=== PATIENT | female | born 1930 | race Caucasian/White ===

== ENCOUNTER 2016-05-08 09:43 | Inpatient (IN) | payer MEDICARE ==
[~2016-05-08] VITALS: Ht 157.5 cm; Wt 65.4 kg
[2016-05-08] MEDS ORDERED: BENA20TA PO (09:53)
[2016-05-08] MEDS ORDERED: VITA2000 PO (09:53)
[2016-05-08] MEDS ORDERED: SIMV20TA PO (09:53)
[2016-05-08] MEDS ORDERED: ULOR40TA PO (09:53)
[2016-05-08] MEDS ORDERED: AMLO10TA2 PO (09:53)
[2016-05-08] MEDS ORDERED: GLUC1TAB24 PO (09:53)
[2016-05-19] MEDS ORDERED: GENTAMICIN SULFATE 80 MG/2 ML VIAL ONE (06:17)
[2016-05-19] MEDS ORDERED: POVIDONE IODINE 5% (ANTISEPSIS KIT) 4 APPLICATIONS EACH NARE PRN (06:30)
[2016-05-19] MEDS ORDERED: METOPROLOL TARTRATE 25 MG TAB PO PRN (06:30)
[2016-05-19] MEDS ORDERED: SODIUM CHLORID 0.9% 500 ML IV PRN (06:30)
[2016-05-19] MEDS ORDERED: INSULIN HUMAN REGULAR 1,000 UNITS/10 ML VIAL SQ PRN (06:30)
[2016-05-19] MEDS ORDERED: LACTATED RINGER'S 1000 ML IV PRN (06:30)
[2016-05-19] MEDS ORDERED: ceFAZolin 2 GM PREMIX 50 ML IV SCH (06:30)
[2016-05-19] MEDS ORDERED: CHLORHEXIDINE GLUCONATE 2 % 1 PACK (2 CLOTHS) TOPICAL PRN (06:30)
[2016-05-19] MEDS: CHLORHEXIDINE GLUCONATE 4% SOLN 120 ML BTL TOPICAL SCH (06:30)
[2016-05-19 06:42] VITALS: BP 162/82; PULSE 89; RESP 18; TEMP 98; O2SAT 98
[2016-05-19] MEDS ORDERED: PROPOFOL 200 MG/20 ML AMP IV ONE (08:19)
[2016-05-19] MEDS ORDERED: PHENYLEPH/NS 1000 MCG/10 ML SYR IV ONE (08:19)
[2016-05-19] MEDS ORDERED: ACETAMINOPHEN 1000 MG/100 ML VIAL IV ONE (08:24)
[2016-05-19] MEDS ORDERED: ONDANSETRON HCL 4 MG/2 ML VIAL ONE (08:24)
[2016-05-19] MEDS ORDERED: FAMOTIDINE 20 MG/2 ML VIAL ONE (08:24)
[2016-05-19] MEDS ORDERED: MIDAZOLAM HCL 2 MG/2 ML VIAL ONE (08:24)
[2016-05-19] MEDS ORDERED: fentaNYL CITRATE 250 MCG/5 ML AMP ONE (08:24)
[2016-05-19] MEDS: SODIUM CHLORIDE 0.9% IV SCH ×2 (08:30→09:00)
[2016-05-19] MEDS: TRANEXAMIC ACID IV SCH ×2 (08:30→09:00)
[2016-05-19] MEDS: EXPAREL PERI-ARTICULAR INJECTION (TOTAL VOL. 60 ML) P-ARTICULR SCH ×4 (08:30→09:30)
[2016-05-19] MEDS ORDERED: TRANEXAMIC ACID IV SCH (11:30)
[2016-05-19] MEDS ORDERED: ONDANSETRON HCL 4 MG/2 ML VIAL IVP PRN (11:30)
[2016-05-19] MEDS ORDERED: SODIUM CHLORIDE 0.9% IV SCH (11:30)
[2016-05-19] MEDS ORDERED: TRANEXAMIC ACID INJ 0 MG in SODIUM CHLORIDE 0.9% INJ 100 ML IV SCH (11:30)
[2016-05-19] MEDS ORDERED: ACETAMINOPHEN/HYDROcodone 325 MG/7.5 MG TAB PO PRN (11:30)
[2016-05-19] MEDS ORDERED: Post-op Orders (for Pharmacy) MISC XX ONE (11:30)
[2016-05-19] MEDS ORDERED: ZOLPIDEM TARTRATE 5 MG TAB PO PRN (11:30)
[2016-05-19] MEDS ORDERED: MAGNESIUM HYDROXIDE SUSP 30 ML CUP PO PRN (11:30)
[2016-05-19] MEDS ORDERED: SODIUM CHLORIDE 0.9% FLUSH 5 ML FLUSH IVF PRN (11:30)
--- NOTE | 2016-05-19 11:39 | HHI.FF ---
Face to Face Verification Diagnosis: (1) Status post total replacement of left shoulder Occupational Therapy Left UE Range of Motion: Pendular Additional Instructions Do not externally rotate beyond neutral. No resistance in internal rotation. Nursing Nursing: Dressing changes Dressing Changes: Daily dressing change, Coverderm/Primapore Additional Instructions Remove steristrips on postop day 14. I have seen patient Johanna Meyers on 05/19/16. My clinical findings support the need for the requested home health care services because: Ltd mobility - disease progression Limited ability to care for self High risk of falls I certify that my clinical findings support that this patient is homebound because: Post-op weakness Unsteady gait/balance Unsafe to leave home unassisted Carissa Clifton MD (Charles) May 19, 2016 11:38
[2016-05-19] MEDS: LACTATED RINGER'S 1000 ML INJ 1,000 ML IV SCH ×2 (12:17→21:18)
[2016-05-19] MEDS: KETOROLAC TROMETHAMINE 30 MG/ML (IVP) VIAL IVP SCH ×2 (12:44→12:45)
--- NOTE | 2016-05-19 13:02 | RADRPT ---
EXAM DATE/TIME: 05/19/2016 13:11 [place] COMPARISON: No previous studies available for comparison. INDICATIONS : Post op left shoulder surgery. MEDICAL HISTORY : Unobtainable. SURGICAL HISTORY : Unobtainable. ENCOUNTER: Initial ACUITY: 1 day PAIN SCORE: 0/10 LOCATION: Left shoulder. FINDINGS: Left shoulder arthroplasty is noted. No fracture or dislocation. A loose body is suspected in inferio r to the coracoid process. A small amount of soft tissue emphysema is present. CONCLUSION: Postoperative changes left shoulder arthroplasty. Francisco Hernandez MD on May 19, 2016 at 13:00 Board Certified Radiologist. This report was verified electronically.
--- NOTE | 2016-05-19 13:35 | PD.CONS ---
[facility] By Dr. Clifton Reason for Consult Medical management Primary Care Physician Tori Le MD Diagnoses: History of Present Illness This is a 86-year-old female past medical history of hypertension, osteoarthritis involving multiple joints, chronic kidney disease and hyperlipidemia who presented with elective left total shoulder arthroplasty. Patient was seen in the PACU at the bedside. She had no complaints. [facility] consulted for medical management. Review of Systems Constitutional: DENIES: Diaphoretic episodes, Fatigue, Fever, Weight gain, Weight loss, Chills, Dizziness, Change in appetite, Night Sweats Endocrine: DENIES: Abnorml menstrual pattern, Heat/cold intolerance, Polydipsia , Polyuria, Polyphagia Eyes: DENIES: Blurred vision, Diplopia, Eye inflammation, Eye pain, Vision loss , Photosensitivity, Double Vision Ears, nose, mouth, throat: DENIES: Tinnitus, Hearing loss, Vertigo, Nasal discharge, Oral lesions, Throat pain, Hoarseness, Ear Pain, Running Nose, Epistaxis, Sinus Pain, Toothache, Odynophagia Respiratory: DENIES: Apneas, Cough, Snoring, Wheezing, Hemoptysis, Sputum production, Shortness of breath Cardiovascular: DENIES: Chest pain, Palpitations, Syncope, Dyspnea on Exertion , PND, Lower Extremity Edema, Orthopnea, Claudication Gastrointestinal: DENIES: Abdominal pain, Black stools, Bloody stools, Constipation, Diarrhea, Nausea, Vomiting, Difficulty Swallowing, Anorexia Genitourinary: DENIES: Abnormal vaginal bleeding, Dysmenorrhea, Dyspareunia, Sexual dysfunction, Urinary frequency, Urinary incontinence, Urgency, Hematuria , Dysuria, Nocturia, Vaginal discharge Musculoskeletal: COMPLAINS OF: Joint pain, DENIES: Muscle aches, Stiffness, Joint Swelling, Back pain, Neck pain Integumentary: DENIES: Abnormal pigmentation, Pruritus, Rash, Nail changes, Breast masses, Breast skin changes, Nipple discharge Hematologic/lymphatic: DENIES: Bruising, Lymphadenopathy Immunologic/allergic: DENIES: Eczema, Urticaria Neurologic: DENIES: Abnormal gait, Headache, Localized weakness, Paresthesias, Seizures, Speech Problems, Tremor, Poor Balance Psychiatric: DENIES: Anxiety, Confusion, Mood changes, Depression, Hallucinations, Agitation, Suicidal Ideation, Homicidal Ideation, Delusions Past Family Social History Allergies: Coded Allergies: No Known Allergies (Unverified , 05/19/16) Past Medical History Hypertension, osteoarthritis involving multiple joints, chronic kidney disease, hyperlipidemia Past Surgical History Right total hip replacement in 2011 Total right shoulder replacement in 2009 Reported Medications Reported Meds & Active Scripts Active Reported Uloric (Febuxostat) 40 Mg Tab 1 Tab PO DAILY Move Free Joint Health Ad (Tfjhqsmggec-Zodjcpxlxda-Rqrplg) 1 Tab Tab 1 Tab PO DAILY Vitamin D3 (Cholecalciferol) 2,000 Unit Cap 2,000 Units PO DAILY Simvastatin 20 Mg Tab 20 Mg PO DAILY Amlodipine (Amlodipine Besylate) 10 Mg Tab 10 Mg PO DAILY Benazepril (Benazepril HCl) 20 Mg Tab 20 Mg PO DAILY Active Ordered Medications Current Medications Gentamicin Sulfate 240 mg 240 mg STK-MED ONCE .ROUTE Last administered on 09:30; Start 05/19/16 at 06:17; Stop 05/19/16 at 06:18; Status DC Lactated Ringer's 1,000 ml @ 30 mls/hr Q24H PRN IV SEE LABEL COMMENTS Last administered on 05/19/16 07:00; Start 05/19/16 at 06:30; Stop 05/22/16 at 06:29 Sodium Chloride (NS 500 ml Inj) 500 ml @ 30 mls/hr [id number] PRN IV SEE LABEL COMMENTS; Start 05/19/16 at 06:30; Stop 05/22/16 at 06:29 Metoprolol Tartrate (Lopressor) 25 mg WELDER FITTER APPRENTICE PRN PO SEE LABEL COMMENTS; Start 05/19/16 at 06:30; Stop 05/22/16 at 06:29 Povidone Iodine (Betadine 5% Antisepsis Kit) 1 applic WELDER FITTER APPRENTICE PRN EACH NARE SEE LABEL COMMENTS; Start 05/19/16 at 06:30; Stop 05/22/16 at 06:29 Chlorhexidine Gluconate (Chlorhexidine 2% Cloth) 3 pack WELDER FITTER APPRENTICE PRN TOPICAL SEE LABEL COMMENTS; Start 05/19/16 at 06:30; Stop 05/22/16 at 06:29 Insulin Human Regular (NovoLIN R INJ) See Protocol Table ... WELDER FITTER APPRENTICE PRN SQ SEE PROTOCOL TABLE; Start 05/19/16 at 06:30; Stop 05/22/16 at 06:29 Chlorhexidine Gluconate 1 applic 1 applic ONCE TOPICAL ; Start 05/19/16 at 06:30 ; Stop 05/22/16 at 06:29 Cefazolin Sodium/ Dextrose 50 ml @ 100 mls/hr WELDER FITTER APPRENTICE IV Last administered on 05/19/16 09:14; Start 05/19/16 at 06:30; Stop 05/22/16 at 06:29 Tranexamic Acid 655 mg/Sodium Chloride 106.55 ml @ 200 mls/ hr ONCE IV Last administered on 05/19/16 09:00; Start 05/19/16 at 08:30; Stop 05/19/16 at 14:30 Tranexamic Acid 655 mg/Sodium Chloride 106.55 ml @ 200 mls/ hr ONCE IV Last administered on 05/19/16 12:17; Start 05/19/16 at 11:30; Stop 05/19/16 at 17:30 Bupivacaine Liposome/Sodium Chloride (Exparel Pf 1.3% Inj/NS Inj) 60 ml @ 120 mls/hr ONCE P-ARTICULR Last administered on 05/19/16 09:30; Start 05/19/16 at 08:30; Stop 05/19/16 at 14:30 Acetaminophen (Ofirmev Inj) 1,000 mg STK-MED ONCE IV ; Start 05/19/16 at 08:24; Stop 05/19/16 at 08:25; Status DC Famotidine (Pepcid Inj) 20 mg STK-MED ONCE .ROUTE ; Start 05/19/16 at 08:24; Stop 05/19/16 at 08:25; Status DC Midazolam HCl (Versed Inj) 2 mg STK-MED ONCE .ROUTE ; Start 05/19/16 at 08:24; Stop 05/19/16 at 08:25; Status DC Fentanyl Citrate (fentaNYL INJ) 250 mcg STK-MED ONCE .ROUTE ; Start 05/19/16 at 08:24; Stop 05/19/16 at 08:25; Status DC Ondansetron HCl 4 mg 4 mg STK-MED ONCE .ROUTE ; Start 05/19/16 at 08:24; Stop at 08:25; Status DC Lactated Ringer's (Lr 1000 ml Inj) 1,000 ml @ 80 mls/hr [id number] IV Last administered on 05/19/16 12:17; Start 05/19/16 at 11:25 IV Flush (NS Flush) 2 ml UNSCH PRN IVF FLUSH AFTER USING IV ACCESS; Start 05/19 at 11:30 IV Flush 2 ml 2 ml BID IVF ; Start 05/19/16 at 21:00 Cefazolin Sodium/ Sodium Chloride (Ancef Inj/NS Inj) 100 ml @ 200 mls/hr Q6H IV ; Start 05/19/16 at 15:00; Stop 05/20/16 at 03:29 Miscellaneous Information (Post-op Orders (for Pharmacy)) STAT ONCE XX ; Start 05/19/16 at 11:30; Stop 05/19/16 at 11:55; Status DC Acetaminophen/ Hydrocodone Bitart ([place] 7.5-325 Mg) 1 tab Q4H PRN PO PAIN LESS THAN 5 ON SCALE; Start 05/19/16 at 11:30 Acetaminophen/ Hydrocodone Bitart ([place] 7.5-325 Mg) 2 tab Q4H PRN PO PAIN SCALE 5 TO 10; Start 05/19/16 at 11:30 Ketorolac Tromethamine 15 mg 15 mg Q6H IVP ; Start 05/19/16 at 13:00; Stop 05/21 at 07:01 Tranexamic Acid/ Sodium Chloride (Cyklokapron Inj/ NS Inj) 100 ml @ 200 mls/hr UNSCH IV ; Start 05/19/16 at 11:30; Stop 05/19/16 at 11:59; Status UNV Ondansetron HCl (Zofran Inj) 4 mg Q6H PRN IVP NAUSEA OR VOMITING; Start at 11:30 Docusate Sodium (Colace) 100 mg BID PO ; Start 05/20/16 at 21:00 Zolpidem Tartrate (Ambien) 5 mg HS PRN PO SLEEP; Start 05/19/16 at 11:30 Magnesium Hydroxide (Milk Of Magnesia Liq) 30 ml DAILY PRN PO CONSTIPATION; Start 05/19/16 at 11:30 Family History Father at the age of 7018 had cardiovascular disease. Mother at the age of 64 from multiple myeloma. Patient has sibling with bone cancer. Social History Patient lives at home by herself. Denied tobacco, alcohol or illicit drug use. Physical Exam Vital Signs Vital Signs Date Time Temp Pulse Resp B/P Pulse Ox O2 Delivery O2 Flow Rate FiO2 05/19/16 12:30 58 18 118/72 94 Nasal Cannula 2 05/19/16 12:15 55 18 109/62 94 Nasal Cannula 2 05/19/16 12:00 58 18 113/67 94 Nasal Cannula 2 05/19/16 11:47 97.5 77 18 119/73 94 Nasal Cannula 4 05/19/16 06:42 98.0 89 18 162/82 98 Physical Exam GENERAL: This is a well-nourished, well-developed patient, in no apparent distress. SKIN: No rashes, ecchymoses or lesions. Cool and dry. HEAD: Atraumatic. Normocephalic. No temporal or scalp tenderness. EYES: Pupils equal round and reactive. Extraocular motions intact. No scleral icterus. No injection or drainage. ENT: Nose without bleeding, purulent drainage or septal hematoma. Throat without erythema, tonsillar hypertrophy or exudate. Uvula midline. Airway patent. NECK: Trachea midline. No JVD or lymphadenopathy. Supple, nontender, no meningeal signs. CARDIOVASCULAR: Regular rate and rhythm without murmurs, gallops, or rubs. RESPIRATORY: Clear to auscultation. Breath sounds equal bilaterally. No wheezes , rales, or rhonchi. GASTROINTESTINAL: Abdomen soft, non-tender, nondistended. No hepato-splenomegaly , or palpable masses. No guarding. MUSCULOSKELETAL: Left arm in a sling with bandages up to the shoulder.. No calf tenderness. Negative Homans sign bilaterally. NEUROLOGICAL: Awake and alert. Cranial nerves II through XII intact. Motor and sensory grossly within normal limits. Five out of 5 muscle strength in all muscle groups. Normal speech. Laboratory Laboratory Tests Test 05/19/16 07:10 Blood Type O POSITIVE Antibody Screen NEGATIVE Blood Bank Comment Assessment and Plan Assessment and Plan Severe left shoulder OA -Left total shoulder arthroplasty s/p postop day #0 on 05/19/2016. -Medical management. -Being managed by orthopedics. Hypertension/hyperlipidemia/chronic kidney disease -Home medication already resumed. -Avoid nephrotoxins. DVT prophylaxis -SCDs Code Status Full code Discussed Condition With Patient Alba Gomez MD May 19, 2016 13:35
[2016-05-19 16:00] VITALS: BP 107/77; PULSE 73; RESP 16; TEMP 95.7; O2SAT 98
[2016-05-19 17:45] VITALS: O2SAT 99
[2016-05-19 20:26] VITALS: BP 140/73; PULSE 78; RESP 18; TEMP 98.2; O2SAT 98
[2016-05-19] MEDS: SODIUM CHLORIDE 0.9% FLUSH 5 ML FLUSH IVF SCH (20:29)
--- NOTE | 2016-05-20 00:02 | MP ---
cc: Genet KITCHEN. DATE OF SURGERY: 05/19/2016 PREOPERATIVE DIAGNOSIS: Primary osteoarthritis left shoulder. POSTOPERATIVE DIAGNOSIS Primary osteoarthritis left shoulder. OPERATION PERFORMED Left total shoulder arthroplasty with [place] Reunion prosthesis. SURGEON Benson Kitchen MD [facility]MENT [facility] ANESTHESIA General endotracheal anesthesia with supplemental interscalene block regional and local with Exparel. INDICATIONS AND FINDINGS This 86-year-old woman has had left shoulder pain for over 18 months. This progressively has worsened to the point that she has difficulty with activities of daily living. She has constant cracking and loss of motion with inability to reach overhead or behind her back. She has been treated with anti-inflammatory agents, analgesics, activity modification, exercises, intra-articular corticosteroids and physical therapy without much improvement. Physical findings showed limited range of motion with a cogwheel type of motion because of loss of articular cartilage. She has tenderness on motion. X-rays showed significant loss of articular cartilage to oyzk-lf-ohgn in the glenohumeral joint with appropriately positioned humeral head and flattening of the femoral head. There are large osteophytes. Operative findings are consistent with the above. She had severe osteoarthritis with loss of articular cartilage, an intact rotator cuff, eburnation and osteophytes in the glenoid and the humeral head. The prosthesis used was a Sal Reunion prosthesis. The humeral component was a size 10 stem with a size 44 x 22 mm head. The glenoid was a size 40-mm self pressurizing glenoid. PROCEDURE The patient was brought to the clean-air operating suite and a general endotracheal anesthetic was administered, after first having an interscalene block regional. She was then positioned in a semi Arnett position with a bolster behind the left shoulder. She received prophylactic antibiotics in the form of Ancef and also received tranexamic acid for assistance in hemostasis. The left shoulder was then prepped with alcohol, Hibiclens and Chloraprep and draped in the usual manner with the shoulder draped free. An appropriate time-out procedure was carried out. Local anesthesia was administered in the incision site. The incision was then made following the deltopectoral groove over the coracoid down to the axilla. The incision was deepened through the subcutaneous tissues to the deltopectoral groove. The cephalic vein was reflected medially. This was protected during the procedure. With retractors in place, the rotator interval was identified and developed. When this was opened, the subscapularis was then carefully released off of the lesser tuberosity. This was tagged with sutures and reflected backwards. With the shoulder dislocated, the osteophytes were trimmed off of the femoral head. Dissection was carried down to 6 o'clock releasing the capsule. The proximal humeral cutting guide was then positioned in place. The proximal humeral cut was then made with the oscillating saw, removing the humeral head. The reaming was then started with a 7 mm reamer and went up to size 10 where there was good cortical chatter. Broaching was then carried out to the size 10. Calcar planing was carried out. The shoulder was then repositioned. Dissection was carried out about the glenoid. Osteophytes were trimmed. The capsulotomy was carried out. The center of the glenoid was identified and marked with the cautery. A drill hole was made in the center followed by placement of the reamer. Reaming was then carried out with a 40 mm reamer. Further osteophytes were trimmed again. The drill guides were then used for first drilling of two distal holes and then drilling the two proximal holes for a pegged prosthesis. The trial was impacted into place and then removed. The appearance was satisfactory. After cleaning and drying the peg holes for the glenoid, these were filled with simplex cement and the self pressurizing glenoid prosthesis was impacted into place. The shoulder was then repositioned. The broach was removed. The actual prosthesis was impacted into place. Various size heads were tried and the 44 x 22 millimeter head was found to be the most appropriate. This gave good stability, good motion. After placement of local anesthesia in the shoulder, the subscapularis was then reapproximated with #1 FiberWire sutures. The rotator interval was likewise closed. Parallel structures were closed with [id number] sutures. End cut were repaired with Teddy-James sutures. The deltopectoral groove was closed with 0 Vicryl interrupted [id number] sutures. Subcutaneous tissues closed with 2-0 Vicryl interrupted simple sutures with buried knots. The skin was closed with continuous subcuticular closure of 4-0 Monocryl. The wound was dressed with Steri-Strips followed by dry dressing, ABD pad, Medipore compression shoulder dressing. The shoulder was placed into a sling. The patient was transferred to the recovery room in satisfactory condition having tolerated the procedure well. Counts were correct. Specimens none. Estimated blood loss 150 ml. MD CARIDAD Benjamin/ALEC /11:44 AM /11:42 PM
[2016-05-20 00:23] VITALS: BP 145/76; PULSE 74; RESP 18; TEMP 98.7; O2SAT 97
[2016-05-20] MEDS: ACETAMINOPHEN/HYDROcodone 325 MG/7.5 MG TAB PO PRN ×2 (00:26→04:39)
[2016-05-20 04:37] VITALS: BP 147/80; PULSE 80; RESP 17; TEMP 97.7; O2SAT 97
[2016-05-20 05:40] VITALS: RESP 16
[2016-05-20] MEDS: CHLORHEXIDINE GLUCONATE 4% SOLN 120 ML BTL TOPICAL SCH (06:30)
--- NOTE | 2016-05-20 06:47 | PD.ORT.PN ---
Subjective Post Op Day #: 1 Subjective Remarks She is doing well. There is not much pain. Objective Vitals Vital Signs Date Time Temp Pulse Resp B/P Pulse Ox O2 Delivery O2 Flow Rate FiO2 05/20/16 05:40 16 05/20/16 04:37 97.7 80 17 147/80 97 05/20/16 00:23 98.7 74 18 145/76 97 05/19/16 20:26 98.2 78 18 140/73 98 05/19/16 17:45 99 Nasal Cannula 3.00 05/19/16 16:00 95.7 73 16 107/77 98 05/19/16 12:30 58 18 118/72 94 Nasal Cannula 2 05/19/16 12:15 55 18 109/62 94 Nasal Cannula 2 05/19/16 12:00 58 18 113/67 94 Nasal Cannula 2 05/19/16 11:47 97.5 77 18 119/73 94 Nasal Cannula 4 I/O 05/19/16 05/19/16 05/19/16 05/20/16 05/20/16 05/20/16 07:00 15:00 23:00 07:00 15:00 23:00 Intake Total 650 ml 480 ml 135 ml Output Total 1 ml Balance 650 ml 480 ml 134 ml Intake Oral 650 ml 480 ml IV Total 135 ml Output Urine Total 1 ml # Voids 2 2 # Bowel Movements 2 0 Imaging Last 72 hours Impressions Shoulder X-Ray 05/19/16 0000 Signed Impressions: Service Date/Time: Thursday, May 19, 2016 13:11 - CONCLUSION: Postoperative changes left shoulder arthroplasty. Francisco Hernandez MD Objective Remarks She is OOB in the chair. The dressing is dry and intact. Th neurovascular status is intact. Assessment & Plan Ortho Post Op Day #: 1 Problem List: (1) Status post total replacement of left shoulder Plan: Continue postop care and PT/OT. Assessment and Plan Orthopaedically stable. Condition: Good. Discharge plans: Home with [facility]. Has appointment. Rx: [place] 7.5/325. Carissa Clifton MD (Charles) May 20, 2016 06:47
[2016-05-20] MEDS: SODIUM CHLORIDE 0.9% FLUSH 5 ML FLUSH IVF SCH (08:00)
[2016-05-20 08:14] LABS: HEMATOCRIT 35.9 % (35.0-46.0); REVIEW FLAG FINAL
[2016-05-20] MEDS ORDERED: HYDR-3580 PO (08:21)
[2016-05-20] MEDS ORDERED: DOCUSATE SODIUM 100 MG CAP PO SCH (21:00)
== END 2016-05-20 08:54 | disposition home health service (06) | DRG 483 ==
LOC: HSDI 05-19 05:55 → EDUNIT# 05-19 08:30 → N06A 05-19 12:40
PROVIDERS: ADMIT Orthopaedic Surgery; ATTEND Orthopaedic Surgery
PROC: 0RRK0JZ Replacement of Left Shoulder Joint with Synthetic Substitute, Open Approach (ICD-10-PCS; principal; 2016-05-19 08:26)
DX: M19.012 Primary osteoarthritis, left shoulder (principal); I12.9 Hypertensive chronic kidney disease with stage 1 through stage 4 chronic kidney disease, or unspecified chronic kidney disease; E78.5 Hyperlipidemia, unspecified; N18.9 Chronic kidney disease, unspecified; Z96.611 Presence of right artificial shoulder joint; Z96.641 Presence of right artificial hip joint
CPT/HCPCS: 73030; 85014; 85018; 86850; 86900; 86901; 94150; C1776; C9290; J0131; J0690; J1580; J2250; J2370; J2405; J3010; J7120

== ENCOUNTER → 2016-05-08 | Outpatient (CLI) | payer MEDICARE ==
[~2016-05-08] MED LIST: AMLO10TA2 PO; BENA20TA PO; GLUC1TAB24 PO; HYDR-3580 PO; SIMV20TA PO; ULOR40TA PO; VITA2000 PO
[2016-05-08 10:46] LABS: HEMATOCRIT 37.1 % (35.0-46.0); MEAN CELL VOLUME 86.8 FL (80.0-100.0); MEAN CORPUSCULAR HEMOGLOBIN 29.6 PG (27.0-34.0); MEAN CORPUSCULAR HGB CONC 34.1 % (32.0-36.0); PLATELET COUNT 221 TH/MM3 (150-450); RED BLOOD COUNT 4.27 MIL/MM3 (4.00-5.30); RED CELL DISTRIBUTION WIDTH 13.5 % (11.6-17.2); REVIEW FLAG FINAL; WHITE BLOOD COUNT 4.8 TH/MM3 (4.0-11.0)
[2016-05-08 10:58] LABS: APTT (PATIENT) 26.8 SEC (24.3-30.1)
[2016-05-08 11:07] LABS: BLOOD, URINE NEG (NEG); GLUCOSE,URINE NEG (NEG); KETONE, URINE NEG (NEG); MUCUS URINE FEW /lpf (OCC); NITRITE,URINE NEG (NEG); PH, URINE 5.5 (5.0-8.5); TRANSITIONAL EPI CELLS, URINE <1 /hpf; URINE COLOR YELLOW (YELLW/STRAW)
[2016-05-08 11:08] LABS: COMMENT (UR) CATH-CULT NOT IND; CULTURE IF INDICATED CATH CULTURE NOT IND
[2016-05-08 11:10] LABS: BICARBONATE 27.8 MEQ/L (21.0-32.0); POTASSIUM 3.8 MEQ/L (3.5-5.1)
--- NOTE | 2016-05-08 16:20 | EKG ---
Date Performed: 05/08/2016 Time Performed: 10:39:41 PTAGE: 86 years EKG: Sinus rhythm NORMAL ECG NO PREVIOUS TRACING DOCTOR: Pauly Vasquez Interpretating Date/Time 05/08/2016 16:19:29
== END ==
LOC: CPRE 09:32
PROVIDERS: ATTEND Orthopaedic Surgery
DX: Z01.810 Encounter for preprocedural cardiovascular examination (principal); Z01.812 Encounter for preprocedural laboratory examination; M19.012 Primary osteoarthritis, left shoulder; I10 Essential (primary) hypertension; M79.609 Pain in unspecified limb
CPT/HCPCS: 36415; 80048; 81001; 85027; 85610; 85730; 93005

== ENCOUNTER 2016-05-21 21:24 | Emergency (ER) | payer MEDICARE ==
[~2016-05-21] VITALS: Ht 157.5 cm; Wt 63.0 kg
[2016-05-21 21:26] VITALS: BP 177/90; PULSE 110; RESP 18; TEMP 99.4; O2SAT 96
--- NOTE | 2016-05-21 21:53 | PD ---
Physical Exam Time Seen by Provider: 21:51 Narrative 86yo F c/o Left shoulder surgery Wednesday by dr Clifton and developed large hematoma today. Called Dr. wu and was told to come to ER for evaluation. Denies fever, vomiting. VSS. Patient seen in triage. Awaiting bed placement. Data Data Last Documented VS Vital Signs Date Time Temp Pulse Resp B/P Pulse Ox O2 Delivery O2 Flow Rate FiO2 05/21/16 21:26 99.4 110 18 177/90 96 Room Air [facility] Supervised Visit with JUANA: Reyna Escobar May 21, 2016 21:53
[2016-05-21 22:53] VITALS: BP 132/74; PULSE 102; RESP 18; O2SAT 92
--- NOTE | 2016-05-22 00:58 | PD ---
HPI Chief Complaint: Wound/Suture/Staple Re-Check Time Seen by Provider: 23:19 Travel History International Travel<30 days: No Contact w/Intl Traveler<30days: No Traveled to known affect area: No History of Present Illness HPI Patient 86-year-old female with a history of left total shoulder replacement presents emergency department for evaluation of discoloration of her left upper extremity. Patient states they called her orthopedic surgeon at home come the emergency department if they were concerned be evaluated. Patient has been in a sling since the surgery. She denies any arm swelling and numbness tingling any increasing pain. She states she's been feeling well and was brought here at her family's request. Denies a history of blood clots or shortness of breath. PFSH Past Medical History Anxiety: No Depression: No Cancer: No Cardiovascular Problems: Yes (HTN) Endocrine: No Genitourinary: No Hepatitis: No Hiatal Hernia: No Hypertension: Yes Immune Disorder: No Medical other: Yes (GOUT, EDEMATOUS LEGS, PADGETTE'S DISEASE) Musculoskeletal: Yes (ARTHRITIS) Neurologic: No Psychiatric: No Reproductive: No Respiratory: No Immunizations Current: Yes Tetanus Vaccination: < 5 Years Influenza Vaccination: Yes Past Surgical History Abdominal Surgery: No AICD: No Body Medical Devices: NONE Cardiac Surgery: No Ear Surgery: No Endocrine Surgery: No Eye Surgery: No Genitourinary Surgery: No Gynecologic Surgery: No Joint Replacement: Yes (RIGHT SHOULDER, RIGHT HIP, LEFT SHOULDER TOTAL 2017 ) Oral Surgery: No Pacemaker: No Thoracic Surgery: No Other Surgery: Yes Social History Alcohol Use: No Tobacco Use: No Substance Use: No Allergies-Medications (Allergen,Severity, Reaction): Coded Allergies: No Known Allergies (Unverified , 05/21/16) Reported Meds & Prescriptions Reported Meds & Active Scripts Active Hydrocodone-Acetaminophen 7.5-325 mg Tab 1 Tab PO Q4H PRN Reported Uloric (Febuxostat) 40 Mg Tab 1 Tab PO DAILY Move Free Joint Health Ad (Zqhwkgqdlbz-Fjptooofpov-Auwtbn) 1 Tab Tab 1 Tab PO DAILY Vitamin D3 (Cholecalciferol) 2,000 Unit Cap 2,000 Units PO DAILY Simvastatin 20 Mg Tab 20 Mg PO DAILY Amlodipine (Amlodipine Besylate) 10 Mg Tab 10 Mg PO DAILY Benazepril (Benazepril HCl) 20 Mg Tab 20 Mg PO DAILY Review of Systems Except as stated in HPI: all other systems reviewed are Neg Physical Exam Narrative GENERAL: Well-developed well-nourished no apparent distress SKIN: Focused skin assessment warm/dry. There is some subcutaneous bruising of the left upper extremity over the humerus. It originates at the surgical site and progresses distally into the before meals fossa where it meets a crease in her skin secondary to the sling. This consistent with a gradual progression of the ecchymosis distally over time which is been limited in its progression secondary to the patient's sling. HEAD: Atraumatic. Normocephalic. EYES: Pupils equal and round. No scleral icterus. No injection or drainage. ENT: No nasal bleeding or discharge. Mucous membranes pink and moist. NECK: Trachea midline. No JVD. CARDIOVASCULAR: Regular rate and rhythm. No murmur appreciated. RESPIRATORY: No accessory muscle use. Clear to auscultation. Breath sounds equal bilaterally. GASTROINTESTINAL: Abdomen soft, non-tender, nondistended. Hepatic and splenic margins not palpable. MUSCULOSKELETAL: No obvious deformities. No clubbing. No cyanosis. Surgical wound in the left shoulder is clean dry and intact. Range of motion is deferred of the left shoulder. Compartments are soft in all 4 extremities. There is minimal edema of the bilateral lower extremities. No edema of the upper extremities. NEUROLOGICAL: Awake and alert. No obvious cranial nerve deficits. Motor grossly within normal limits. Normal speech. PSYCHIATRIC: Appropriate mood and affect; insight and judgment normal. Data Data Last Documented VS Vital Signs Date Time Temp Pulse Resp B/P Pulse Ox O2 Delivery O2 Flow Rate FiO2 05/21/16 22:53 102 18 132/74 92 Room Air 05/21/16 21:26 99.4 Orders MDM Medical Decision Making Medical Screen Exam Complete: Yes Emergency Medical Condition: Yes Differential Diagnosis Subcutaneous ecchymosis, normal postop period, DVT seems unlikely. Narrative Course Patient roomed in emergency department, discussed with her I have a low index suspicion for DVT in her but still would recommend having a DVT study she's not excludable by any clinical rules and she is agreeable. As ultrasound arrives patient is unable to tolerate positioning for the procedure secondary to postoperative pain. I discussed with her options including giving her pain medicine and she would like to go home. Discussed with her the the risks of an undiagnosed DVT and my very low index suspicion and she still would like to go home. Discussed if she has any shortness of breath or swelling of the left upper extremity. She will return for consideration of a DVT ultrasound. My index suspicion is very low and think it was very conservative management to order an ultrasound at this time. She is stable for discharge. Diagnosis Primary Impression: Subcutaneous hematoma Additional Instructions: Call your orthopedic surgeon. Disposition: DISCHARGE HOME Condition: Stable Kj Kellogg MD May 22, 2016 00:58
== END 2016-05-22 02:21 | disposition home or self-care (01) ==
LOC: NEPD 21:24
DX: S40.022A Contusion of left upper arm, initial encounter (principal); I10 Essential (primary) hypertension; G89.18 Other acute postprocedural pain; Z98.890 Other specified postprocedural states; Z86.79 Personal history of other diseases of the circulatory system; Z87.39 Personal history of other diseases of the musculoskeletal system and connective tissue; Y83.4 Other reconstructive surgery as the cause of abnormal reaction of the patient, or of later complication, without mention of misadventure at the time of the procedure
CPT/HCPCS: 99283

== ENCOUNTER 2017-09-20 05:25 | Inpatient (IN) ==
[2017-09-20] MEDS ORDERED: Bupivacaine Liposomal PF 1.3% Inj 20 ML Vial ONE (06:11)
[2017-09-20] MEDS ORDERED: Metoprolol Tartrate 25 MG Tablet PO SCH (06:15)
[2017-09-20] MEDS ORDERED: Chlorhexidine Gluconate 2% 1 Pack (2 Cloths) TOPICAL SCH (06:15)
[2017-09-20] MEDS ORDERED: Sodium Chlor 0.9% Inj 0 ML ONE (06:17)
[2017-09-20] MEDS ORDERED: Dexmedetomidine Inj 200 MCG/2 ML Vial ONE (06:17)
[2017-09-20] MEDS ORDERED: fentaNYL Citrate Inj 100 MCG/2 ML Ampul ONE (06:17)
[2017-09-20] MEDS ORDERED: Famotidine PF Inj 20 MG/2 ML Vial ONE (06:17)
[2017-09-20] MEDS ORDERED: fentaNYL Citrate Inj 250 MCG/5 ML Ampul ONE (06:29)
[2017-09-20] MEDS ORDERED: Chlorhexidine 4% Topical 120 APPLIC/120 ML Bottle TOPICAL SCH (06:30)
[2017-09-20] MEDS ORDERED: ceFAZolin Inj 3,000 MG in Sodium Chlor 0.9% Inj 100 ML IV.SIG SCH (07:00)
[2017-09-20] MEDS ORDERED: TRANEXAMIC ACID IV.SIG SCH ×2 (07:00→10:00)
[2017-09-20] MEDS ORDERED: SODIUM CHLOR 0.9% IV.SIG SCH ×2 (07:00→10:00)
[2017-09-20] MEDS ORDERED: Sodium Chlor 0.9% Inj 80 ML, Bupivacaine Liposo PF 1.3% Inj 20 ML P-ARTICULR SCH ×2 (07:00)
[2017-09-20] MEDS ORDERED: Sodium Chlor 0.9% Inj 500 ML IV.SIG SCH (07:00)
[2017-09-20] MEDS ORDERED: ceFAZolin Inj 2,000 MG in Sodium Chlor 0.9% Inj 100 ML IV.SIG SCH (07:00)
[2017-09-20] MEDS ORDERED: Morphine Inj 4 MG/ML Vial IV.PUSH PRN (08:56)
[2017-09-20] MEDS ORDERED: Acetaminophen 325 MG Tablet PO PRN (08:56)
[2017-09-20] MEDS ORDERED: Aluminum/Magnesium/Simethacone Susp 30 ML UDC PO PRN (08:56)
[2017-09-20] MEDS ORDERED: Bisacodyl 10 MG Supp RECTAL PRN (08:56)
--- NOTE | 2017-09-20 09:04 | P.OP ---
- Preoperative Diagnosis (1) Primary osteoarthritis of left knee - Postoperative Diagnosis (1) Primary osteoarthritis of left knee Date of procedure: 09/20/17 Procedure: Left total knee arthroplasty using Sal Triathlon prosthesis (uncemented). Anesthesia: GETA, regional (Adductor canal block), local (Exparel) Surgeon: Franklyn Clifton MD Residential Appliance Repair Technician: CONSTANCE Martinez Estimated blood loss (mL): 300 Tourniquet time (min): 0 Operation and Findings: Indications and Findings: This 87-year-old woman has had long-standing left knee discomfort which began to worsening in the past 6 months so that her ambulation tolerance became 1 block and she has limitations in her activities of daily living including difficulty walking, a progressive deformity in the knee pain at rest as well as pain on motion. She did not respond to conservative measures including analgesics, anti-inflammatory agents, activity modification, exercises and ambulatory aids. Physical findings show significant degenerative valgum with laxity in the lateral compartment, tenderness in the lateral compartment and left palpable osteophytes. Imaging studies showed advanced arthritis in the left knee with loss of joint space predominantly laterally with there being a vacuum phenomenon and loss of articular cartilage with eburnation. There are osteophytes throughout the knee. Operative findings: There is significant genu valgum with loss of articular cartilage to [id number] particularly in the lateral compartment and some in the medial compartment. There is change also in the patellofemoral compartment. There were tricompartmental osteophytes. There is lateral compartment eburnation. The prosthesis used was a Sal Triathlon prosthesis. The femur was a size 4, cruciate retaining, uncemented. The tibial baseplate was a size 4 Tritanium with a 9 mm cruciate retaining X3 polyethylene spacer. The patella was a size 32 mm asymmetric Tritanium backed. The patient was brought to the clean-air operating suite after administration of a regional anesthetic by adductor canal block. A spinal anesthetic was administered. The position was supine with a small bolster under the hip on the operative side. A pneumatic tourniquet was applied to the upper thigh. The lower extremity was prepped with alcohol, Hibiclens and ChloraPrep and draped in the usual manner with the knee draped free. An appropriate timeout procedure was carried out. An incision was made from about 3 fingerbreadths above the superior medial pole of patella down the tibial tubercle on the medial side. The incision was deepened through the subcutaneous tissue to the retinacular structures which were exposed medially and laterally. A medial retinacular incision was made from the superior medial pole of patella down the tibial tubercle and up into the quadriceps tendon, splitting it longitudinally in the medial one third. The patella was reflected. The infrapatellar fat pad was debulked. The anterior cruciate ligament was excised. Medial and lateral meniscectomies were initiated. Fenestrations were made in the distal femur and proximal tibia for intramedullary referencing guides. The distal femoral cutting guide and jig were assembled for a 5, 8 mm cut. When this was fit into position,the cutting block was stabilized with pins. The jig was removed. The distal femoral cut was completed with the oscillating saw. The sizing guide was positioned in place along Whitesides line and the epicondylar axis and stabilized with pins. The femoral size was determined as noted above. The size 3 was checked but was found to slightly small and would cause notching. The 4-in-1 cutting block was positioned in place. Anterior and posterior cuts were made followed by posterior and anterior chamfer cuts taking care to prevent injury to ligamentous structures. Osteophytes were trimmed from the distal femur. A bone plug was placed into the fenestration of the distal femur. The proximal tibia was exposed. The medial and lateral meniscectomies were completed. The proximal tibial cutting guide was positioned in place and stabilized with a pin for rotation. The depth of cut was verified with a stylus off the high side. The cutting block was stabilized with pins. The jig was removed. The depth of cut was verified and adjusted appropriately with the use of the spacer block. The proximal tibial cut was made with the oscillating saw taking care to prevent injury to neurovascular and ligamentous structures. Proximal tibial bone was removed. Local anesthetic was administered with Exparel in the posterior capsule. The tibial baseplate trial was positioned in place. After verifying the appropriate size, the base plate trial was positioned in place along with its spacer. The femoral component was impacted into place. The alignment was checked. The tibial baseplate was pinned in place on the tibia. Attention was directed to the patella. The patella drill guide was positioned in place for the appropriate sized patella. Patellar drilling was then carried out. The trial patella was positioned in place. The knee was taken through a range of motion which was easily 0 extension to 150 of flexion. The patella trial was removed. The femoral drill holes were made. The femoral trials were removed. The tibial spacer was removed. A bone plug was placed into the proximal tibia. The tibial punch was impacted through the proximal tibial punch guide. This was all removed followed by placement of the tibial drill guide. The tibial drill holes were made. The guide was removed. The cut ends of bone were cleaned with pulse lavage. The tibial baseplate was impacted into place and seated appropriately. The spacer was inserted. The the femoral component was impacted into place and seated appropriately. The patella component was seated with the patellar vice and tightened appropriately. The knee was taken through a range of motion which was comparable to the previous range of motion with excellent stability in flexion and extension and appropriate patellofemoral tracking. The remainder of the Exparel was injected throughout the knee as a local anesthetic. Drains were brought out the superior lateral aspect of the suprapatellar pouch. Wound closure commenced using 0 Vicryl interrupted [id number] sutures for the capsular and fascial structures, 2-0 Vicryl interrupted simple sutures with buried knots for the subcutaneous tissues and 4-0 Monocryl, continuous subcuticular closure for the skin. The wound was dressed with Dermabond Prineo followed by a dry sterile dressing. Sterile soft roll with a cooling pad and Kyle bandage from the base of the toes to mid thigh were applied. Patient was transferred from the operating room to the recovery room in satisfactory condition having tolerated procedure well. Counts were correct. Specimens: None. Estimated blood loss: 300 mL
--- NOTE | 2017-09-20 09:06 | P.DCO ---
- Physical Therapy Physical Therapy: Gait training Knee: Total knee, Protocol: Left, Gait training, Full weight bearing Left Lower Extremity Weight Bearing: Weight bearing as tolerated Left Lower Extremity Range of Motion: Active ROM (Active, active assisted, passive range of motion. Range of motion goal is 0 extension to 140 of flexion. Range of motion achieved in the operating room was 0 extension to 150 of flexion.) - Nursing Nursing: Dressing changes Dressing changes: Daily dressing change, Coverderm/Primapore Additional instructions: Do not remove Dermabond Prineo. - Certification Need for Home Health services: I have seen patient Johanna Meyers on 09/20/17. My clinical findings support the need for the requested home health care services because: Need for Home Health Services: Limited mobility due to disease progression, Deconditioned with increased weakness, High risk of falls Homebound Certification: I certify that my clinical findings support that this patient is homebound because: Homebound Certification: Post-op weakness, Unsteady gait/balance, Unsafe to leave home unassisted
[2017-09-20] MEDS ORDERED: Post-op Orders (for Pharmacy) OTHER STA (09:24)
--- NOTE | 2017-09-20 09:52 | P.CONIM ---
History of Present Illness Service: [facility] Consult date: 09/20/17 Requesting Physician: Franklyn Clifton Reason for Consult: Opinion recommendation on treatment of patient's hypertension hyperlipidemi Primary Care Provider: Trevor Jordan MD Family Provider: Trevor Jordan MD History of Present Illness: 87-year-old white female with a history of osteoarthritis, hypertension, hyperlipidemia has had long-term history of left knee pain despite conservative treatment. She electively underwent a left total knee arthroplasty with Dr. Clifton orthopedic surgery today. She states that usually her home blood pressure is controlled adequately with taking her home antihypertensives. She denies a history of blood in the stools or black tarry stools. She is currently in the PACU recovering has no other complaints at this time. 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 - Family History Family History: Family History (Last Updated 09/20/17 @ 09:47 by Giana Coffman MD) Mother Family history of hypertension - Tobacco History Second Hand Smoke Exposure: No Smoking Status: Never smoker - Alcohol History How Often Do You Have a Drink Containing Alcohol: Never - Substance Use History Substance History: No History of Abuse - Travel History Recent Travel in the [place] Within the Last 8 Weeks: No Recent Travel Out of the Country Within the Last 8 Weeks: No Medications and Allergies Active Medications: Active Medications Acetaminophen (Tylenol) 650 mg PO Q6H PRN PRN Reason: Pain Less Than 3 On Scale Hydrocodone Bitart/Acetaminophen (Willard 7.5/325) 1 tab PO Q4H PRN PRN Reason: PAIN SCALE 4 TO 6 MODERATE Hydrocodone Bitart/Acetaminophen (Willard 7.5/325) 2 tab PO Q6H PRN PRN Reason: PAIN SCALE 7 TO 10 SEVERE Al Hydrox/Mg Hydrox/Simethicone (Mag-Al Plus Susp Liq) 30 ml PO Q6H PRN PRN Reason: INDIGESTION Al Hydroxide/Mg Hydroxide (Milk Of Magnesia Liq) 30 ml PO BID PRN PRN Reason: Mild Constipation Amlodipine Besylate (Norvasc) 10 mg PO DAILY ON LICENSE OF [facility] Aspirin (Aspirin Chew) 81 mg PO BID ON LICENSE OF [facility] Bisacodyl (Dulcolax Supp) 10 mg RECTAL DAILY PRN PRN Reason: SEVERE CONSITIPATION Chlorhexidine Gluconate (Chlorhexidine 2% Cloth) 3 pack TOPICAL [employer]ELOPER PROVER ON LICENSE OF [facility] Stop: 09/23/17 06:09 Last Admin: 09/20/17 06:00 Dose: 3 pack Chlorhexidine Gluconate (Hibiclens 4% Topical) 1 applicatio TOPICAL ONCE ON LICENSE OF [facility] Stop: 09/24/17 06:29 Last Admin: 09/20/17 06:00 Dose: 1 applicatio Sodium Chloride 80 ml/ (Bupivacaine Liposome 20 ml) 0 ml P-ARTICULR ONCE ON LICENSE OF [facility] Stop: 09/20/17 13:00 Last Admin: 09/20/17 07:20 Dose: 100 bag Diphenhydramine HCl (Benadryl) 25 mg PO Q6H PRN PRN Reason: ITCHING Fluticasone Propionate (Flonase Nasal [place]) 1 spray EACH NARE DAILY ON LICENSE OF [facility] Sodium Chloride (Ns Inj) 500 mls @ 30 mls/hr IV.SIG .Q10H ON LICENSE OF [facility] Stop: 09/23/17 06:09 Lactated Ringer's (Lr 1000 Ml Inj) 1,000 mls @ 30 mls/hr IV.SIG .Q24H ON LICENSE OF [facility] Stop: 09/23/17 06:09 Last Admin: 09/20/17 06:15 Dose: 30 mls/hr Cefazolin Sodium 2,000 mg/ (Sodium Chloride) 120 mls @ 240 mls/hr IV.SIG [employer]EL[employer] PROVER ON LICENSE OF [facility] Stop: 09/21/17 06:59 Last Infusion: 09/20/17 07:45 Dose: Infused Tranexamic Acid 624 mg/ Sodium (Chloride) 106.24 mls @ 200 mls/hr IV.SIG ONCE ON LICENSE OF [facility] Stop: 09/20/17 16:00 Tranexamic Acid 624 mg/ Sodium (Chloride) 106.24 mls @ 200 mls/hr IV.SIG ONCE ON LICENSE OF [facility] Stop: 09/20/17 13:00 Last Infusion: 09/20/17 07:46 Dose: Infused Cefazolin Sodium 1,000 mg/ (Sodium Chloride) 100 mls @ 200 mls/hr IV.SIG Q6H ON LICENSE OF [facility] Stop: 09/20/17 21:29 Lactated Ringer's (Lr 1000 Ml Inj) 1,000 mls @ 80 mls/hr IV.CONT .[id number] MAURILIO Tranexamic Acid / Sodium (Chloride) 100 mls @ 200 mls/hr IV.SIG ONCE ONE Stop: 09/20/17 09:25 Ketorolac Tromethamine (Toradol Inj) 15 mg IV.PUSH Q6H ON LICENSE OF [facility] Stop: 09/22/17 03:01 Lactulose (Lactulose Liq) 30 ml PO DAILY PRN PRN Reason: SEVERE CONSITIPATION Metoprolol Tartrate (Lopressor) 25 mg PO [employer] PROVER ON LICENSE OF [facility] Stop: 09/23/17 06:09 Last Admin: 09/20/17 07:58 Dose: Not Given Miscellaneous Information (Misc Post-Op Orders (For Pharmacy)) 0 each OTHER STAT STA Stop: 09/20/17 08:57 Morphine Sulfate (Morphine Inj) 2 mg IV.PUSH Q3H PRN PRN Reason: BREAKTHROUGH PAIN Non-Formulary Medication (Benazepril [Benazepril]) 20 mg PO DAILY ON LICENSE OF [facility] Non-Formulary Medication (Cholecalciferol (Vitamin D3) [Vitamin D3]) 2,000 unit PO DAILY ON LICENSE OF [facility] Non-Formulary Medication (Febuxostat [Uloric]) 40 mg PO DAILY ON LICENSE OF [facility] Non-Formulary Medication (Simvastatin [Simvastatin]) 20 mg PO QPM ON LICENSE OF [facility] Ondansetron HCl (Zofran Odt) 4 mg PO Q6H PRN PRN Reason: NAUSEA OR VOMITING Povidone Iodine (Betadine 5% Antisepsis Kit) 1 applicatio EACH NARE [employer]EL[employer] PROVER ON LICENSE OF [facility] Stop: 09/23/17 06:09 Last Admin: 09/20/17 06:20 Dose: 1 applicatio Senna/Docusate Sodium (Heaven-Colace) 1 tab PO BID ON LICENSE OF [facility] Sennosides (Senokot) 17.2 mg PO BID PRN PRN Reason: Moderate Constipation Sodium Chloride (Ns Flush) 2 ml IV.FLUSH BID ON LICENSE OF [facility] Sodium Chloride (Ns Flush) 2 ml IV.FLUSH PRN PRN PRN Reason: FLUSH AFTER USING IV ACCESS Zolpidem Tartrate (Ambien) 5 mg PO HS PRN PRN Reason: INSOMNIA Allergies Allergy/AdvReac Type Severity Reaction Status Date / Time No Known Allergies Allergy Verified 09/20/17 05:55 Home Medications Medication Instructions Recorded Confirmed Type amlodipine 10 mg PO DAILY 09/02/17 09/20/17 History benazepril 20 mg PO DAILY 09/02/17 09/20/17 History cholecalciferol (vitamin D3) 2,000 unit PO DAILY 09/02/17 09/20/17 History [Vitamin D3] febuxostat [Uloric] 40 mg PO DAILY 09/02/17 09/20/17 History fluticasone 1 spray INTRANASAL DAILY 09/02/17 09/20/17 History simvastatin 20 mg PO QPM 09/02/17 09/20/17 History Exam Vital signs: Vital Signs 09/20/17 06:27 Pulse Rate 81 Pulse Oximetry 100 Intake & Output 09/19/17 09/20/17 09/20/17 18:59 06:59 18:59 Intake Total 1826.24 / 1826.24 Output Total 300 / 300 Balance 1526.24 / 1526.24 Weight 62.4 kg Intake: IV 226.24 / 226.24 Cyklokapron Inj 624 MG In NS 106.24 / 106.24 Inj 100 ML @ 200 mls/hr IV.SIG ONCE ON LICENSE OF [facility] Rx#:[id number] Ancef Inj 2,000 MG In NS Inj 120 / 120 100 ML @ 240 mls/hr IV.SIG [employer] PROVER MAURILIO Rx#:[id number] Anesthesia Amount 1600 / 1600 Output: Estimated Blood Loss 300 / 300 Other: Weight On Admission 62.4 kg Narrative: GENERAL: Well-nourished well-developed pleasant female sleepy in no acute distress in the PACU SKIN: Warm and dry. HEAD: Atraumatic. Normocephalic. EYES: Pupils equal and round. No scleral icterus. No injection or drainage. ENT: No nasal bleeding or discharge. Mucous membranes pink and moist. NECK: Trachea midline. No JVD. CARDIOVASCULAR: Regular rate and rhythm. RESPIRATORY: No accessory muscle use. Clear to auscultation. Breath sounds equal bilaterally. GASTROINTESTINAL: Abdomen soft, non-tender, nondistended. Hepatic and splenic margins not palpable. Normoactive bowel sounds MUSCULOSKELETAL: Extremities without clubbing, cyanosis, or edema. No obvious deformities. NEUROLOGICAL: Awake and alert to person place time sleepy but responds appropriately to questions. No obvious cranial nerve deficits. Motor grossly within normal limits. Normal speech. Left lower extremity stabilized wrapped in Kyle bandage with drain in place. Results - Labs Labs: Laboratory Results - last 24 hr 09/20/17 06:12 Blood Type O Positive Blood Type Recheck Required Antibody Screen Negative Assessment and Plan - Assessment (1) Status post total left knee replacement not using cement Code(s): Z96.652 - Presence of left artificial knee joint Status: Acute (2) HTN (hypertension), benign Code(s): I10 - Essential (primary) hypertension Status: Chronic (3) Hyperlipemia Code(s): E78.5 - Hyperlipidemia, unspecified Status: Chronic - Plan 87-year-old white female with a history of hypertension hyperlipidemia osteoarthritis presents with 1. Status post left total knee arthroplastycontinue postoperative care, pain control, physical therapy per orthopedic surgery Dr. Clifton 2. Hypertension, chronicresume home KYLE inhibitor and amlodipine, further recommendations based on blood pressure trends. Will provide Vasotec IV as needed for any uncontrolled blood pressure 3. Hyperlipidemiaresume home statin 4. DVT prophylaxisper orthopedic surgery, aspirin Thank you for the consultation. (3) Hyperlipemia Qualifiers: Hyperlipidemia type: unspecified Qualified Code(s): E78.5 - Hyperlipidemia, unspecified
[2017-09-20] MEDS ORDERED: *morphine SULFATE 4 MG/ML PERIprocedure ONLY ONE ×2 (10:32→14:37)
--- NOTE | 2017-09-20 11:05 | XR ---
EXAM DATE: 09/20/2017 10:46 AM EDT AGE/SEX: 87 years / Female INDICATIONS: Post op left total knee replacement. CLINICAL DATA: This is the patient's initial encounter. Patient reports that signs and symptoms have been present for 1 day and indicates a pain score of 5/10. MEDICAL/SURGICAL HISTORY: None. None. COMPARISON: TLI, XR KNEE COMPLETE, LEFT, 04/13/2017. . FINDINGS: AP and lateral views of the knee following arthroplasty reveals a prosthesis in anatomic alignment. F racture is not appreciated. Surgical drain is evident CONCLUSION: Status post total knee arthroplasty. Juvencio Gonsalez MD FACR Electronically signed by: Juvencio Gonsalez MD 09/20/2017 11:04 AM EDT
[2017-09-20] MEDS ORDERED: Glycopyrrolate Inj 1 MG/5 ML Syringe IV.PUSH ONE (12:00)
[2017-09-20] MEDS ORDERED: Lidocaine PF 1% Inj 5 ML Syringe INFILTRATN ONE (12:00)
[2017-09-20] MEDS ORDERED: Phenylephrine/NS 1000 MCG/10ML Syringe IV.PUSH ONE (12:00)
[2017-09-20] MEDS ORDERED: Neostigmine Inj 5 MG/5 ML Syringe IV.PUSH ONE (12:00)
[2017-09-20] MEDS ORDERED: TRANEXAMIC ACID IV.SIG ONE (15:30)
[2017-09-20] MEDS ORDERED: SODIUM CHLOR 0.9% IV.SIG ONE (15:30)
[2017-09-20] MEDS: Lisinopril 20 MG Tablet PO SCH (18:03)
[2017-09-20] MEDS: Senna/Docusate Sodium 8.6/50 MG Tablet PO SCH ×2 (18:03→21:47)
[2017-09-20] MEDS: amLODIPine 10 MG Tablet PO SCH (18:03)
[2017-09-20] MEDS: Ketorolac Inj 30 MG/ML (IVP) Vial IV.PUSH SCH ×2 (18:23→21:48)
[2017-09-20] MEDS ORDERED: Zolpidem Tartrate 5 MG Tablet PO PRN (21:00)
[2017-09-21] MEDS: Ketorolac Inj 30 MG/ML (IVP) Vial IV.PUSH SCH ×2 (03:23→09:25)
[2017-09-21 05:49] LABS: Hematocrit 29.3 % (35.0-46.0); Hemoglobin 10.2 gm/dL (11.6-15.3)
--- NOTE | 2017-09-21 06:25 | P.PNOP ---
Subjective Interval history: Postop day #1 She is doing well. She has minimal complaints related to the knee at this time. Physical therapy reports that the ambulation distance was 65 feet. The range of motion was 0 extension to 90 of flexion. Physical Exam Vital signs: Vital Signs 09/20/17 06:27 09/20/17 09:25 09/20/17 09:45 Temperature 97.4 F L Pulse Rate 81 93 H 69 Respiratory Rate 18 16 Blood Pressure 132/71 142/65 H Pulse Oximetry 100 95 96 09/20/17 10:00 09/20/17 10:15 09/20/17 10:30 Temperature Pulse Rate 66 63 66 Respiratory Rate 16 16 16 Blood Pressure 133/65 162/66 H 137/64 Pulse Oximetry 96 96 98 09/20/17 14:00 09/20/17 16:10 09/20/17 19:29 Temperature 97.9 F 98.5 F Pulse Rate 68 68 16 L Respiratory Rate 16 18 16 Blood Pressure 120/60 111/57 L 123/56 L Pulse Oximetry 98 99 96 09/20/17 20:00 09/20/17 23:59 09/21/17 03:27 Temperature 98 F 98.5 F 97.9 F Pulse Rate 81 72 74 Respiratory Rate 15 16 16 Blood Pressure 130/61 112/58 L 136/69 Pulse Oximetry 93 L 98 Intake & Output 09/20/17 09/20/17 09/21/17 06:59 18:59 06:59 Intake Total 1926.24 / 1926.24 200 / 200 Output Total 350 / 350 100 / 100 Balance 1576.24 / 1576.24 100 / 100 Weight 62.4 kg 62.4 kg Intake: IV 326.24 / 326.24 100 / 100 Cyklokapron Inj 624 MG In NS 106.24 / 106.24 Inj 100 ML @ 200 mls/hr IV.SIG ONCE MAURILIO Rx#:[id number] Ancef Inj 1,000 MG In NS Inj 100 / 100 100 / 100 100 ML @ 200 mls/hr IV.SIG Q6H MAURILIO Rx#:[id number] Ancef Inj 2,000 MG In NS Inj 120 / 120 100 ML @ 240 mls/hr IV.SIG BLADDER CHANGER MAURILIO Rx#:[id number] Oral 100 / 100 Anesthesia Amount 1600 / 1600 Output: Estimated Blood Loss 300 / 300 Wound Drainage 50 / 50 100 / 100 # 2 Left Upper Knee 50 / 50 100 / 100 Other: # Voids 3 Date of Last Bowel Movement 09/19/17 Weight On Admission 62.4 kg Narrative: She is resting comfortably, supine in bed, in the CPM. The dressing is dry and intact. The neurovascular status is intact. Results - Labs CBC & Chem 7: 09/21/17 04:32 Laboratory Results - last 24 hr 09/20/17 09/21/17 06:12 04:32 Hgb 10.2 L Hct 29.3 L Blood Type O Positive Blood Type Recheck Required Antibody Screen Negative - Imaging Impressions Knee X-Ray 09/20/17 08:54 CONCLUSION: Status post total knee arthroplasty. Juvencio Gonsalez MD FACR - Procedures Left total knee arthroplasty using [place]idian Triathlon prosthesis (uncemented), Assessment and Plan - Ortho Post Op Day # 1 - Problem List (1) Status post total left knee replacement not using cement Code(s): Z96.652 - Presence of left artificial knee joint Status: Acute Plan: Continue postop care and PT - Assessment and Plan Condition: Good. Orthopedically stable. DVT prophylaxis: TEDs, aspirin, sequentials. Discharge plans: Home with home health care. An appointment was scheduled through the office. Prescriptions: [place] 7.5/325; Patient is having significant pain caused by a total knee replacement which will last more than 3 days. Trial of Tylenol has not helped. I believe that it is medically necessary to treat patients pain because it is affecting patients ability to participate in postoperative rehabilitation and perform activities of daily living in a comfortable and efficient manner.
[2017-09-21] MEDS ORDERED: ULORIC 40 MG PO SCH (09:00)
[2017-09-21] MEDS: Lisinopril 20 MG Tablet PO SCH (09:24)
[2017-09-21] MEDS: amLODIPine 10 MG Tablet PO SCH (09:24)
[2017-09-21] MEDS: Senna/Docusate Sodium 8.6/50 MG Tablet PO SCH (09:26)
--- NOTE | 2017-09-21 09:40 | P.DS ---
Date of admission: 09/20/17 17:01 Primary care physician: Trevor Jordan MD Attending physician on discharge: Franklyn Kitchen Anticipated date of discharge: 09/21/17 Brief History from admission: This 87-year-old woman has had long-standing and progressive arthritis in her left knee which has given her progressive genuine valgum and pain in the knee more recently limiting her ambulation as described in the history and physical examination. Her physical findings showed significant genu valgum with lateral laxity, crepitation on motion, and effusion and tenderness on motion. X-ray showed severe genu valgum with loss of articular cartilage to [id number] in the lateral compartment, eburnation and osteophytes throughout the knee. She is admitted for an elective left total knee arthroplasty. DS: Diagnosis - Discharge Diagnosis (1) Status post total left knee replacement not using cement Status: Acute Diagnosis: Principal (2) Primary osteoarthritis of left knee Status: Acute Diagnosis: Principal DS: Medications - Discharge Medications Prescriptions: hydrocodone-acetaminophen 1 tab PO Q4H PRN 7 Days #42 tab PRN Reason: Pain (Scale Score 7-10) DS: Summary Hospital Course: The patient was admitted as noted above. The above noted operative procedure was carried out that day. Preoperatively prophylactic antibiotics were administered Ancef according to protocol. These were continued postoperatively. The patient also received tranexamic acid to help with hemostasis according to protocol. In the postanesthesia care unit a continuous passive motion device was initiated. Also initiated were mechanical methods of DVT prophylaxis in the form of KODI stockings and sequentials. Physical therapy was initiated on the day of surgery. On postoperative day #1 physical therapy continued. The use of the continuous passive motion device continued. DVT prophylaxis with aspirin 81 mg was initiated at this time. The patient continued physical therapy throughout the hospitalization. The distance walked and range of motion improved throughout the hospitalization. The patient was discharged on postoperative day 1 with the disposition being to home with home health care. An appointment for follow-up was made prior to admission. - Time Spent with Patient Total time spent providing and/or coordinating discharge services: Greater than 30 minutes - Quality: VTE Deep Vein Thrombosis/Pulmonary Embolism Present on Admission: No Exam Vital signs: Vital Signs 09/20/17 09:45 09/20/17 10:00 09/20/17 10:15 Temperature Pulse Rate 69 66 63 Respiratory Rate 16 16 16 Blood Pressure 142/65 H 133/65 162/66 H Pulse Oximetry 96 96 96 09/20/17 10:30 09/20/17 14:00 09/20/17 16:10 Temperature 97.9 F Pulse Rate 66 68 68 Respiratory Rate 16 16 18 Blood Pressure 137/64 120/60 111/57 L Pulse Oximetry 98 98 99 09/20/17 19:29 09/20/17 20:00 09/20/17 23:59 Temperature 98.5 F 98 F 98.5 F Pulse Rate 16 L 81 72 Respiratory Rate 16 15 16 Blood Pressure 123/56 L 130/61 112/58 L Pulse Oximetry 96 93 L 98 09/21/17 03:27 Temperature 97.9 F Pulse Rate 74 Respiratory Rate 16 Blood Pressure 136/69 Pulse Oximetry Intake & Output 09/20/17 09/21/17 09/21/17 18:59 06:59 18:59 Intake Total 1926.24 / 1926.24 200 / 200 Output Total 350 / 350 100 / 100 Balance 1576.24 / 1576.24 100 / 100 Weight 62.4 kg 62.9 kg Intake: IV 326.24 / 326.24 100 / 100 Cyklokapron Inj 624 MG In NS 106.24 / 106.24 Inj 100 ML @ 200 mls/hr IV.SIG ONCE MAURILIO Rx#:[id number] Ancef Inj 1,000 MG In NS Inj 100 / 100 100 / 100 100 ML @ 200 mls/hr IV.SIG Q6H MAURILIO Rx#:[id number] Ancef Inj 2,000 MG In NS Inj 120 / 120 100 ML @ 240 mls/hr IV.SIG [employer]ERIALS DIRECTOR MAURILIO Rx#:[id number] Oral 100 / 100 Anesthesia Amount 1600 / 1600 Output: Estimated Blood Loss 300 / 300 Wound Drainage 50 / 50 100 / 100 # 2 Left Upper Knee 50 / 50 100 / 100 Other: # Voids 3 Date of Last Bowel Movement 09/19/17 Narrative: She is resting comfortably, supine in bed in the [facility]. The dressing is dry and intact. The neurovascular status is intact. Results Procedures completed during hospitalization: Left total knee arthroplasty using Shannon Triathlon prosthesis (uncemented), Labs on day of discharge: Labs from last 24 hours 09/21/17 04:32 Hgb 10.2 L Hct 29.3 L - Impressions ITS Impressions Knee X-Ray 09/20/17 08:54 CONCLUSION: Status post total knee arthroplasty. Juvencio Gonsalez MD FACR Discharge Plan - Discharge Disposition Patient Disposition: Disch W/Home Health Service - Discharge Condition Condition: Stable - Discharge Details Anticipated Discharge Date: 09/21/17 - Physicians Team Primary Care Provider: Trevor Jordan Attending Provider: Franklyn Kitchen Other Providers: Giana Coffman MD ; [facility] - Rxs /Orders / Referrals /Forms Prescriptions: New aspirin 81 mg Tablet,Chewable 81 mg PO BID RF: 0 hydrocodone-acetaminophen 7.5-325 mg Tablet 1 tab PO Q4H PRN (Reason: Pain (Scale Score 7-10)) 7 Days Qty: 42 RF: 0 Continue amlodipine 10 mg Tablet 10 mg PO DAILY benazepril 20 mg Tablet 20 mg PO DAILY cholecalciferol (vitamin D3) [Vitamin D3] 2,000 unit Capsule 2,000 unit PO DAILY febuxostat [Uloric] 40 mg Tablet 40 mg PO DAILY fluticasone 50 mcg/actuation [place],Suspension 1 spray INTRANASAL DAILY simvastatin 20 mg Tablet 20 mg PO QPM Referrals: Franklyn Kitchen MD [Physician] - See Instructions Trevor Jordan MD [Primary Care Provider] - See Instructions - Discharge Instructions Patient Printed Instructions: How to Choose and Use a Walker (GEN), Pain Management After Surgery (DC), KODI Hose (DC), Knee Replacement (DC) Additional Instructions: KEEP FOLLOWUP APPOINTMENT WITH DR. KITCHEN RX FOR HYDROCODONE SENT HOME WITH PATIENT. DO NOT DRINK ALCOHOL OR DRIVE WHILE ON PAIN MEDICATIONS. - Post Discharge Care Plan Care Plan Goals: Discharge Care Plan Goals for Total Knee Replacement You have undergone knee replacement surgery. Your doctor replaced your painful joint with an artificial joint to relieve pain and restore movement. Here are some goals to help you heal well. Directions to Meet your Goals: 1. Activity & Exercises: * Take pain medicine as directed by your doctor. * Sit in chairs with arms. The arms make it easier for you to stand up or sit down. * Dont sit for more than 30 to 45 minutes at one time. * Nap if you are tired, but dont stay in bed all day. * Sleep with a pillow under your ankle, not your knee. Be sure to change the position of your leg during the night. * Wear the support stockings you were given in the hospital as directed by your surgeon. 2. Prevent Falls/Injury: The corona to successful recovery is movement with walking and exercising your knee as directed by your doctor. * Arrange your household to keep the items you need handy. Keep everything else out of the way. * Remove items that may cause you to fall, such as throw rugs and electrical cords. * Use nonslip bath mats, grab bars, an elevated toilet seat, and a shower chair in your bathroom * Sit on a shower stool or chair when you shower to keep from falling. * Until your balance, flexibility, and strength improve, use a cane, crutches, a walker, handrails, or someone to help you. * Keep your hands free by using a backpack, mayuri pack, apron, or pockets to carry things * Walk up and down stairs with support. Try one step at a time. Use the railing if possible. * Dont drive until your doctor says its OK. * Dont drive while you are taking opioid pain medicine. 3. Precautions: * Prevent infection. Any infection will need to be treated immediately. Call your doctor right away if you think you might have an infection. * Tell your dentist that you have an artificial joint and take antibiotics as prescribed before any dental work. * Tell all your healthcare providers about your artificial joint before any medical procedure. * Maintain a healthy weight. Get help to lose any extra pounds. Added body weight puts stress on the knee. * Your medications may include blood-thinning medicine to prevent blood clots or antibiotics to prevent infection-prevent any falls or cuts 4. Incision Care: * Prevent infection by washing your hands often. If an infection occurs, it will need to be treated right away. * Call your doctor right away if you think you may have an infection. Symptoms include a fever or an incision that leaks white, green, or yellow fluid. * Don't soak your incision in water until your doctor says its OK. This means no hot tubs, bathtubs, or swimming pools. * Follow your doctor's instructions for changing the dressing. * Dont rub the incision, or apply creams or lotions to it. * If you notice any redness or drainage around the bandage site, contact your surgeon's office immediately. 5. Follow-Up: Do Not miss your follow-up appointment. Keep up with all your appointments and yearly check ups When to call your doctor: Call your doctor right away if you have: Fever of 100.4F (38C) or higher, or as directed by your doctor Shaking chills Stiffness, or inability to move the knee Increased swelling in your leg Increased redness, tenderness, or swelling in or around the knee incision Drainage from the knee incision Increased knee pain Call 911: Call 911 right away if you have: Chest pain Shortness of breath Any pain or tenderness in your calf
== END 2017-09-21 10:53 | disposition home health service (06) ==
LOC: HSDC 05:25 → EDSTATUS 07:00 → N06 17:01
PROVIDERS: ADMIT Orthopaedic Surgery; ATTEND Orthopaedic Surgery